=== PATIENT | male | born 1965 | race Caucasian/White ===

== ENCOUNTER 2018-02-23 09:15 | Emergency (ER) | payer BC ==
[~2018-02-23] VITALS: Ht 177.8 cm; Wt 127.5 kg
[~2018-02-23 09:15] MED LIST: KEFLEX500 MG PO; METFORMIN HCL1000 MG PO; PERCOCET 5-3251 EACH PO; PRILOSEC20 MG PO
[2018-02-23] MEDS ORDERED: VENLAFAXINE HCL75 M1 PO (09:25)
[2018-02-23] MEDS ORDERED: ATORVASTATIN CA40 MG PO (09:26)
[2018-02-23] MEDS ORDERED: GLIPIZIDE XL5 MG PO (09:26)
[2018-02-23] MEDS ORDERED: LISINOPRIL10 MG PO (11:10)
--- NOTE | 2018-02-23 21:37 | EKG ---
[facility] [address] [facility] [place] [address] Signed Sinus tachycardia Left anterior fascicular block Minimal voltage criteria for LVH, may be normal variant Abnormal ECG No previous ECGs available Confirmed by GILDA PLUNKETT MD ([id number] on 02/23/2018 9:37:28 PM Electronically Signed By: GILDA PLUNKETT MD 02/23/18 2137 PATIENT NAME: SHARRON CAPUTO AIDE Electrocardiogram DATE OF : 63 PHYSICIAN: GILDA PLUNKETT MD REPORT #: [id number] REPORT IS CONFIDENTIAL AND NOT TO BE RELEASED WITHOUT AUTHORIZATION
== END 2018-02-23 11:28 | disposition home or self-care (01) ==
LOC: ED 09:15
DX: I11.0 Hypertensive heart disease with heart failure (principal); I50.9 Heart failure, unspecified; Z87.891 Personal history of nicotine dependence; Z88.8 Allergy status to other drugs, medicaments and biological substances; Z79.84 Long term (current) use of oral hypoglycemic drugs; Z79.899 Other long term (current) drug therapy
CPT/HCPCS: 71046; 80053; 83880; 84484; 85025; 93005; 93010; 99285

== ENCOUNTER 2019-05-15 15:15 | Emergency (ER) | payer OTHER, BC ==
[~2019-05-15] VITALS: Ht 177.8 cm; Wt 127.5 kg
[~2019-05-15 15:15] MED LIST changes: +ATORVASTATIN CA40 MG PO; +GLIPIZIDE XL5 MG PO; +LISINOPRIL10 MG PO; +VENLAFAXINE HCL75 M1 PO
[2019-05-15] MEDS ORDERED: NORCO 5-325 TA1 EACH PO (17:35)
== END 2019-05-15 17:45 | disposition home or self-care (01) ==
LOC: ED 15:15
PROC: 2W3DX1Z Immobilization of Left Lower Arm using Splint (ICD-10-PCS; principal; 2019-05-15)
DX: S62.337A Displaced fracture of neck of fifth metacarpal bone, left hand, initial encounter for closed fracture (principal); S33.5XXA Sprain of ligaments of lumbar spine, initial encounter; V43.53XA Car driver injured in collision with pick-up truck in traffic accident, initial encounter
CPT/HCPCS: 29125; 72100; 73130; 99284-25

== ENCOUNTER 2020-08-04 14:45 | Emergency (ER) | payer BC ==
[~2020-08-04] VITALS: Ht 177.8 cm; Wt 122.5 kg
[~2020-08-04 14:45] MED LIST changes: +NORCO 5-325 TA1 EACH PO
[2020-08-04] MEDS ORDERED: LASIX40 MG PO (20:06)
--- NOTE | 2020-08-05 22:04 | EKG ---
[facility] [address] [facility] [place] [address] Signed Normal sinus rhythm Left axis deviation Inferior infarct , age undetermined Cannot rule out Anterior infarct , age undetermined Abnormal ECG When compared with ECG of 23-FEB-2018 09:17, Left anterior fascicular block is no longer present Minimal criteria for Anterior infarct are now present Inferior infarct is now present T wave inversion now evident in Lateral leads Confirmed by FILIPE CARTAGENA MD ([id number] on 08/05/2020 10:04:16 PM Electronically Signed By: FILIPE CARTAGENA MD 08/05/20 2204 PATIENT NAME: SHARRON CAPUTO Electrocardiogram DATE OF : 63 PHYSICIAN: FILIPE CARTAGENA MD REPORT #: [id number] REPORT IS CONFIDENTIAL AND NOT TO BE RELEASED WITHOUT AUTHORIZATION
== END 2020-08-04 21:05 | disposition home or self-care (01) ==
LOC: ED 14:45
DX: I11.0 Hypertensive heart disease with heart failure (principal); I50.9 Heart failure, unspecified; E11.9 Type 2 diabetes mellitus without complications; K21.9 Gastro-esophageal reflux disease without esophagitis; Z87.891 Personal history of nicotine dependence; Z88.8 Allergy status to other drugs, medicaments and biological substances; Z79.899 Other long term (current) drug therapy; Z79.84 Long term (current) use of oral hypoglycemic drugs
CPT/HCPCS: 80053; 84484; 85025; 93005; 93010; 99283-25